=== PATIENT | male | born 1960 | race Caucasian/White ===

== ENCOUNTER 2025-06-08 16:24 | Emergency (ER) | payer OTHER ==
[~2025-06-08] VITALS: Ht 175.3 cm; Wt 65.8 kg
[2025-06-08] MEDS ORDERED: Loxapine10 MG PO (16:47)
== END 2025-06-08 16:44 | disposition home or self-care (01) ==
LOC: ER 16:24
DX: Z76.0 Encounter for issue of repeat prescription (principal); Z79.899 Other long term (current) drug therapy
CPT/HCPCS: 99281

== ENCOUNTER 2025-07-03 11:48 | Emergency (ER) | payer MEDICARE ==
[~2025-07-03] VITALS: Ht 182.9 cm; Wt 68.0 kg
[~2025-07-03 11:48] MED LIST: Loxapine10 MG PO
[2025-07-03] MEDS ORDERED: Loxapine10 MG PO (12:36)
== END 2025-07-03 12:37 | disposition home or self-care (01) ==
LOC: ER 11:48
DX: Z76.0 Encounter for issue of repeat prescription (principal)
CPT/HCPCS: 99281